=== PATIENT | male | born 1965 | race Caucasian/White ===

== ENCOUNTER 2017-02-15 13:39 | Emergency (ER) | payer SELFPAY ==
[~2017-02-15] VITALS: Ht 175.3 cm; Wt 118.0 kg
[~2017-02-15 13:39] MED LIST: NOCURR
[2017-02-15] MEDS ORDERED: METF10002 PO (14:02)
[2017-02-15 14:07] LABS: GLUCOSE,POINT OF CARE 171 MG/DL (70-110)
[2017-02-15 15:22] VITALS: BP 159/98
== END 2017-02-15 15:36 | disposition home or self-care (01) ==
LOC: EMS 13:40
DX: L02.212 Cutaneous abscess of back [any part, except buttock and flank] (principal); R03.0 Elevated blood-pressure reading, without diagnosis of hypertension; E11.9 Type 2 diabetes mellitus without complications
CPT/HCPCS: 82962; 99283